=== PATIENT | female | born 1995 | race Caucasian/White ===

== ENCOUNTER 2017-09-23 17:42 | Emergency (ER) | payer BC, OTHER ==
[2017-09-23 17:49] VITALS: TEMP 98.4; O2SAT 96
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
[2017-09-23] MEDS ORDERED: AZITHROMYCIN 250 MG TAB PO ONE (18:40)
[2017-09-23 22:13] VITALS: BP 122/68; PULSE 90; RESP 18
== END 2017-09-23 21:30 | disposition home or self-care (01) ==
LOC: EEVIPCON 17:42
DX: T74.21XA Adult sexual abuse, confirmed, initial encounter (principal)
CPT/HCPCS: J0696